=== PATIENT | female | born 1950 | race Hispanic/Latino ===

== ENCOUNTER 2021-11-15 16:49 | Inpatient (IN) | payer MEDICARE ==
[~2021-11-15] VITALS: Ht 160 cm; Wt 91.1 kg
[2021-11-15] MEDS ORDERED: KETOROLAC 15MG/ML VIAL (15MG/ML) IV ONE (17:30)
[2021-11-15] MEDS ORDERED: ONDANSETRON 4MG INJ IVP ONE (17:30)
[2021-11-15] MEDS ORDERED: MORPHINE 4 MG SYG IVP ONE (17:30)
[2021-11-15 17:33] LABS: BASOPHILS % (AUTO) 0.5 % (0.0-5.0); EOSINOPHILS % (AUTO) 5.8 % (0.0-8.0); HEMATOCRIT 39.2 % (36-48); LYMPHOCYTES % (AUTO) 12.2 % (21.0-51.0); MEAN CORPUSCULAR HGB CONC 33.7 g/dL (32.0-36.0); MEAN CORPUSCULAR VOLUME 89.1 fL (79-99); MONOCYTES % (AUTO) 8.9 % (3.0-13.0); PLATELET COUNT (AUTO) 171 K/uL (130-400); RED CELL DISTRIBUTION WIDTH 12.4 % (11.0-15.5); WHITE BLOOD COUNT (AUTO) 11.7 K/uL (4.8-10.8)
[2021-11-15 17:35] LABS: POTASSIUM 4.1 mmol/L (3.5-5.1)
[2021-11-15 17:36] LABS: INR 0.93 (0.85-1.15); PROTHROMBIN TIME 10.2 SEC (9.6-11.6)
[2021-11-15 17:58] LABS: ALBUMIN 3.1 g/dL (3.5-5.0); TOTAL PROTEIN, SERUM 7.6 g/dL (6.0-8.3)
[2021-11-15] MEDS ORDERED: 0.9%NACL 1000ML 1,000 ML IV ONE (18:00)
[2021-11-15] MEDS ORDERED: HEPARIN 25,000 UNITS/250ML D5W 250 ML IV ONE (18:42)
[2021-11-15] MEDS ORDERED: ACETAMINOPHEN 325 MG TAB PO PRN (19:00)
[2021-11-15] MEDS ORDERED: ONDANSETRON 4MG INJ IV PRN (19:00)
[2021-11-15] MEDS ORDERED: HEPARIN 5,000 UNIT VIAL ONE (19:51)
[2021-11-15] MEDS: 0.9%NACL 1000ML 1,000 ML IV SCH (20:03)
[2021-11-15] MEDS: HEPARIN 25,000 UNITS/250ML D5W 250 ML IV SCH (20:03)
[2021-11-15] MEDS ORDERED: ERGO500093 PO (21:22)
[2021-11-15] MEDS ORDERED: TRIA1CAP87 PO (21:22)
[2021-11-15] MEDS ORDERED: ATOR20TA65 PO (21:22)
[2021-11-15] MEDS ORDERED: ALEN70TA80 PO (21:22)
[2021-11-15 22:35] LABS: CREATININE,URINE RANDOM 146 mg/dL (30-135); SODIUM,URINE RANDOM 26 mmol/l (40-220)
[2021-11-15 23:16] VITALS: BP 121/60
[2021-11-16] MEDS ORDERED: ALBUTEROL INHALER 90MCG/INH IH PRN (00:30)
[2021-11-16 02:03] LABS: BASOPHILS % (AUTO) 0.6 % (0.0-5.0); EOSINOPHILS % (AUTO) 8.7 % (0.0-8.0); HEMATOCRIT 33.9 % (36-48); LYMPHOCYTES % (AUTO) 23.2 % (21.0-51.0); MEAN CORPUSCULAR HEMOGLOBIN 30.1 pg (27.0-33.0); MEAN CORPUSCULAR VOLUME 91.1 fL (79-99); MONOCYTES % (AUTO) 9.1 % (3.0-13.0); PLATELET COUNT (AUTO) 153 K/uL (130-400); RED BLOOD CELL COUNT(AUTO) 3.72 MIL/uL (4.00-5.50); RED CELL DISTRIBUTION WIDTH 12.6 % (11.0-15.5); WHITE BLOOD COUNT (AUTO) 10.3 K/uL (4.8-10.8)
[2021-11-16 02:16] LABS: CREATININE 1.8 mg/dL (0.5-1.5); MAGNESIUM 1.9 mg/dL (1.80-2.40); PHOSPHORUS 4.7 mg/dL (2.5-4.9); POTASSIUM 4.2 mmol/L (3.5-5.1)
[2021-11-16 03:18] LABS: PROTHROMBIN TIME 10.9 SEC (9.6-11.6)
[2021-11-16 03:36] LABS: PARTIAL THROMBOPLASTIN TIME 136.1 SEC (26.3-35.5)
[2021-11-16 03:48] VITALS: BP 132/63
[2021-11-16] MEDS: HEPARIN 25,000 UNITS/250ML D5W 250 ML IV SCH ×2 (05:12→14:16)
[2021-11-16 06:51] VITALS: BP 127/62
[2021-11-16] MEDS ORDERED: TRAMADOL HCL 50 MG TABLET PO PRN ×2 (08:00)
[2021-11-16] MEDS: FAMOTIDINE 20MG VIAL IV SCH (08:40)
[2021-11-16] MEDS ORDERED: ERGOCALCIFEROL (VITAMIN D2) 50,000 UNIT CAPSULE PO SCH (09:00)
[2021-11-16 12:00] VITALS: BP 131/60
[2021-11-16] MEDS: 0.9%NACL 1000ML 1,000 ML IV SCH (13:54)
[2021-11-16 16:00] VITALS: BP 139/49
[2021-11-16] MEDS ORDERED: HYDROMORPHONE 0.5 MG SYG (0.5MG/0.5ML) IVP PRN (19:30)
[2021-11-16 20:00] VITALS: BP 130/50
[2021-11-16] MEDS: ATORVASTATIN 20 MG TABLET PO SCH (21:52)
[2021-11-16] MEDS: DOCUSATE SODIUM 100 MG CAP PO SCH (21:52)
[2021-11-17] VITALS (7 sets, daily range): BP systolic 114–137; BP diastolic 49–68
[2021-11-17 04:12] LABS: HEMATOCRIT 35.9 % (36-48); MEAN CORPUSCULAR HEMOGLOBIN 30.1 pg (27.0-33.0); MEAN CORPUSCULAR HGB CONC 32.9 g/dL (32.0-36.0); MEAN CORPUSCULAR VOLUME 91.6 fL (79-99); RED BLOOD CELL COUNT(AUTO) 3.92 MIL/uL (4.00-5.50); RED CELL DISTRIBUTION WIDTH 12.6 % (11.0-15.5); WHITE BLOOD COUNT (AUTO) 9.1 K/uL (4.8-10.8)
[2021-11-17 04:24] LABS: CREATININE 1.5 mg/dL (0.5-1.5); POTASSIUM 4.4 mmol/L (3.5-5.1)
[2021-11-17] MEDS: DOCUSATE SODIUM 100 MG CAP PO SCH ×2 (08:08→21:23)
[2021-11-17] MEDS: FAMOTIDINE 20MG VIAL IV SCH (08:08)
[2021-11-17] MEDS: HEPARIN 25,000 UNITS/250ML D5W 250 ML IV SCH (11:12)
[2021-11-17] MEDS: BISACODYL 5 MG TABLET.DR PO SCH (21:22)
[2021-11-17] MEDS: ATORVASTATIN 20 MG TABLET PO SCH (21:23)
[2021-11-18 04:00] VITALS: BP 133/58
[2021-11-18 07:00] VITALS: BP_SYST 141; BP_SYST 149; BP_DIAS 69; BP_DIAS 72
[2021-11-18] MEDS: FAMOTIDINE 20MG VIAL IV SCH (08:14)
[2021-11-18] MEDS: DOCUSATE SODIUM 100 MG CAP PO SCH ×2 (08:14→20:10)
[2021-11-18] MEDS: BISACODYL 5 MG TABLET.DR PO SCH ×2 (08:14→20:10)
[2021-11-18] MEDS: HEPARIN 25,000 UNITS/250ML D5W 250 ML IV SCH (08:27)
[2021-11-18 11:00] VITALS: BP 141/69
[2021-11-18 16:00] VITALS: BP 148/69
[2021-11-18] MEDS ORDERED: PHARMACY COMMUNICATION MISC SCH (17:30)
[2021-11-18] MEDS ORDERED: APIXABAN 5 MG TABLET PO SCH (18:00)
[2021-11-18 20:00] VITALS: BP 128/61
[2021-11-18] MEDS: ATORVASTATIN 20 MG TABLET PO SCH (20:10)
[2021-11-18 23:30] VITALS: BP 122/45
[2021-11-19 03:51] VITALS: BP 118/63
[2021-11-19 07:00] VITALS: BP 122/45
[2021-11-19] MEDS: FAMOTIDINE 20MG VIAL IV SCH (08:24)
[2021-11-19] MEDS: APIXABAN 5 MG TABLET PO SCH ×2 (08:24→18:08)
[2021-11-19] MEDS: DOCUSATE SODIUM 100 MG CAP PO SCH (08:25)
[2021-11-19] MEDS: BISACODYL 5 MG TABLET.DR PO SCH (08:25)
[2021-11-19] MEDS ORDERED: FUROSEMIDE 40MG VIAL IV SCH (10:30)
[2021-11-19 10:45] LABS: MEAN CORPUSCULAR HEMOGLOBIN 30.1 pg (27.0-33.0); MEAN CORPUSCULAR HGB CONC 32.5 g/dL (32.0-36.0); MEAN CORPUSCULAR VOLUME 92.5 fL (79-99); RED BLOOD CELL COUNT(AUTO) 3.89 MIL/uL (4.00-5.50); RED CELL DISTRIBUTION WIDTH 12.6 % (11.0-15.5); WHITE BLOOD COUNT (AUTO) 6.2 K/uL (4.8-10.8)
[2021-11-19 10:53] LABS: CREATININE 1.1 mg/dL (0.5-1.5); MAGNESIUM 2.1 mg/dL (1.80-2.40); POTASSIUM 4.2 mmol/L (3.5-5.1)
[2021-11-19 11:00] VITALS: BP 131/61
[2021-11-19] MEDS ORDERED: APIX5TAB PO (11:14)
[2021-11-19] MEDS ORDERED: TORS20TA PO (11:14)
[2021-11-19 16:00] VITALS: BP 132/52
[2021-11-19] MEDS ORDERED: PHARMACY COMMUNICATION MISC SCH (18:30)
[2021-11-19] MEDS ORDERED: APIXABAN 5 MG TABLET PO SCH (19:00)
[2021-11-25] MEDS ORDERED: APIXABAN 5 MG TABLET PO SCH (21:00)
== END 2021-11-19 18:51 | disposition home or self-care (01) | DRG 300 ==
LOC: EDH 16:49 → EDHIP 18:50 → 2AH 22:53
PROVIDERS: ADMIT Internal Medicine; ATTEND Internal Medicine
DX: I82.412 Acute embolism and thrombosis of left femoral vein (principal); N17.9 Acute kidney failure, unspecified; I82.432 Acute embolism and thrombosis of left popliteal vein; I82.442 Acute embolism and thrombosis of left tibial vein; E78.00 Pure hypercholesterolemia, unspecified; N18.9 Chronic kidney disease, unspecified; K59.00 Constipation, unspecified; I12.9 Hypertensive chronic kidney disease with stage 1 through stage 4 chronic kidney disease, or unspecified chronic kidney disease; Z88.0 Allergy status to penicillin; Z86.718 Personal history of other venous thrombosis and embolism; Z86.711 Personal history of pulmonary embolism; Z82.5 Family history of asthma and other chronic lower respiratory diseases; Z82.49 Family history of ischemic heart disease and other diseases of the circulatory system; Z79.01 Long term (current) use of anticoagulants
CPT/HCPCS: 36415; 80048; 80053; 82570; 83605; 83735; 84100; 84300; 85025; 85027; 85610; 85730; 86140; 87040; 93926; 93971; G0378; J1644; J1885; J2270; J2405; J3490; J7030

== ENCOUNTER → 2022-01-17 | Outpatient (CLI) | payer MEDICARE ==
[~2022-01-17] MED LIST: ALEN70TA80 PO; APIX5TAB PO; ATOR20TA65 PO; ERGO500093 PO; TORS20TA PO
[2022-01-17 13:00] LABS: CREATININE 0.8 mg/dL (0.5-1.5); POTASSIUM 3.7 mmol/L (3.5-5.1)
== END | disposition home or self-care (01) ==
LOC: LAB 11:32
PROVIDERS: ATTEND Internal Medicine Cardiovascular Disease
DX: I10 Essential (primary) hypertension (principal); I60.9 Nontraumatic subarachnoid hemorrhage, unspecified
CPT/HCPCS: 36415; 80048

== ENCOUNTER → 2022-11-18 | Outpatient (CLI) | payer MEDICARE ==
[2022-11-18 22:48] VITALS: PULSE 74; RESP 20
[2022-11-18 23:30] VITALS: PULSE 68; RESP 18
[2022-11-19] VITALS (11 sets, daily range): PULSE 62–70; RESP 6–20
== END | disposition home or self-care (01) ==
LOC: SLP 19:27
PROVIDERS: ATTEND Family Medicine
DX: G47.33 Obstructive sleep apnea (adult) (pediatric) (principal); R40.0 Somnolence
CPT/HCPCS: 95810

== ENCOUNTER → 2022-11-27 | Outpatient (CLI) | payer MEDICARE ==
[2022-11-27] VITALS (7 sets, daily range): PULSE 61–81; RESP 8–24
[2022-11-28] VITALS (12 sets, daily range): PULSE 55–71; RESP 13–24
== END | disposition home or self-care (01) ==
LOC: SLP 19:57
PROVIDERS: ATTEND Family Medicine
DX: G47.33 Obstructive sleep apnea (adult) (pediatric) (principal); R40.0 Somnolence; I10 Essential (primary) hypertension
CPT/HCPCS: 95811

== ENCOUNTER → 2023-07-03 | Outpatient (CLI) | payer MEDICARE | END | disposition home or self-care (01) | LOC: RAH 10:58 | PROVIDERS: ATTEND Internal Medicine | DX: I82.512 Chronic embolism and thrombosis of left femoral vein (principal); I82.532 Chronic embolism and thrombosis of left popliteal vein | CPT/HCPCS: 93971 ==

== ENCOUNTER → 2023-12-24 | Outpatient (CLI) | payer MEDICARE | END | disposition home or self-care (01) | LOC: RAH 12:22 | PROVIDERS: ATTEND Internal Medicine | DX: R22.42 Localized swelling, mass and lump, left lower limb (principal) | CPT/HCPCS: 76882 ==